=== PATIENT | male | born 1985 | race Caucasian/White ===

== ENCOUNTER 2017-09-22 00:41 | Emergency (ER) | payer MEDICAID, OTHER ==
[2017-09-22 00:42] VITALS: BMI 20.6
--- NOTE | 2017-09-22 01:18 | ED PDOC ---
Arrival/HPI - General Chief Complaint: Abdominal Pain Time Seen by Provider: 09/22/17 00:51 Historian: Patient - History of Present Illness Narrative History of Present Illness (Text): 09/22/17 01:15 A 32 year old male, with no significant past medical history, presents to the emergency department complaining of 1 day duration chills, nausea, vomiting, and body aches. The patient denies fevers, headache, dizziness, chest pain, shortness of breath, dyspnea on exertion, cough, abdominal pain, diarrhea, urinary/bowel changes, or any other complaint. PMD: Dr. Tyesha Mckeon Time/Duration: Other (1 Day) Symptom Onset: Sudden Symptom Course: Unchanged Activities at Onset: Rest, Light Context: Home Past Medical History - Provider Review Nursing Documentation Reviewed: Yes - Infectious Disease Hx of Infectious Diseases: None - Gastrointestinal Hx Gastritis: Yes - Psychiatric Hx Substance Use: No - Anesthesia Hx Anesthesia: No - Suicidal Assessment Feels Threatened In Home Enviroment: No Family/Social History - Physician Review Nursing Documentation Reviewed: Yes Family/Social History: No Known Family HX Smoking Status: Light Smoker < 10 Cigarettes Daily Hx Alcohol Use: Yes Frequency of alcohol use: Socially Hx Substance Use: No Allergies/Home Meds Allergies/Adverse Reactions: Allergies No Known Allergies Allergy (Verified 09/22/17 01:02) Home Medications: Home Meds Medication Instructions Recorded Confirmed Famotidine [Pepcid] 40 mg PO DAILY 09/22/17 09/22/17 Review of Systems - Physician Review All systems were reviewed & negative as marked: Yes - Review of Systems Constitutional: absent: Fevers Respiratory: absent: SOB, Cough Cardiovascular: absent: Chest Pain, [place] Gastrointestinal: Nausea, Vomiting. absent: Abdominal Pain, Stool Changes, Diarrhea Genitourinary Male: absent: Urinary Output Changes Musculoskeletal: Myalgias Neurological: absent: Headache, Dizziness Physical Exam Vital Signs Reviewed: Yes Vital Signs Temp Pulse Resp BP Pulse Ox 09/22/17 03:08 98.7 F 79 20 113/64 98 09/22/17 01:04 99.0 F 93 H 18 124/78 96 Temperature: Afebrile Blood Pressure: Normal Pulse: Tachycardic Respiratory Rate: Normal Appearance: Positive for: Well-Appearing, Non-Toxic, Comfortable Pain Distress: None Mental Status: Positive for: Alert and Oriented X 3 - Systems Exam Head: Present: Atraumatic, Normocephalic Pupils: Present: PERRL Extroacular Muscles: Present: EOMI Conjunctiva: Present: Normal Mouth: Present: Moist Mucous Membranes Neck: Present: Normal Range of Motion Respiratory/Chest: Present: Clear to Auscultation, Good Air Exchange. No: Respiratory Distress, Accessory Muscle Use Cardiovascular: Present: Regular Rate and Rhythm, Normal S1, S2. No: Murmurs Abdomen: Present: Normal Bowel Sounds. No: Tenderness, Distention, Peritoneal Signs Back: Present: Normal Inspection Upper Extremity: Present: Normal Inspection. No: Cyanosis, Edema Lower Extremity: Present: Normal Inspection. No: Edema Neurological: Present: GCS=15, CN II-XII Intact, Speech Normal Skin: Present: Warm, Dry, Normal Color. No: Rashes Psychiatric: Present: Alert, Oriented x 3, Normal Insight, Normal Concentration Medical Decision Making ED Course and Treatment: 09/22/17 01:17 Impression: A 32 year old male presents to the emergency department complaining of 1 day duration chills, body aches, vomiting, and diarrhea. Plan: -- Reassess and disposition Progress Notes: - Lab Interpretations Lab Results: 09/22/17 01:37 09/22/17 01:37 Lab Results 09/22/17 01:37: Sodium 138, Potassium 3.7, Chloride 101, Carbon Dioxide 28, Anion Gap 13, BUN 18, Creatinine 0.8, Est GFR ( Amer) > 60, Est GFR (Non- Af Amer) > 60, Random Glucose 102, Calcium 9.6, Total Bilirubin 0.6, AST 35, ALT 75 H, Alkaline Phosphatase 59, Total Protein 7.4, Albumin 4.3, Globulin 3.1 , Albumin/Globulin Ratio 1.4 09/22/17 01:37: Influenza Typ A,B (EIA) Negative for flu a/b 09/22/17 01:37: WBC 10.9, RBC 4.75, Hgb 14.5, Hct 42.3, MCV 89.1, MCH 30.5, MCHC 34.3, RDW 12.1, Plt Count 217, MPV 9.7, Gran % 84.9 H, Lymph % (Auto) 9.1 L , [place] % (Auto) 5.2, Eos % (Auto) 0.7 L, Baso % (Auto) 0.1, Gran # 9.26 H, Lymph # (Auto) 1.0 L, [place] # (Auto) 0.6, Eos # (Auto) 0.1, Baso # (Auto) 0.01 - Medication Orders Current Medication Orders: Discontinued Medications Sodium Chloride (Sodium Chloride 0.9%) 1,000 mls @ 80 mls/hr IV .[id number] JUSTIN Last Admin: 09/22/17 02:08 Dose: 80 mls/hr eMAR Start Stop Document 09/22/17 02:08 SS (Rec: 09/22/17 02:08 SS [email or web address] Intravenous Solution Start Date 09/22/17 Start Time 02:08 Ketorolac Tromethamine (Toradol) 30 mg IVP ONCE ONE Stop: 09/22/17 01:40 Last Admin: 09/22/17 02:09 Dose: 30 mg MAR Pain Assessment Document 09/22/17 02:09 SS (Rec: 09/22/17 02:09 SS [email or web address] Pain Reassessment Is this a pain reassessment? No Location Pain Location Body Site Abdomen IVP Administration Document 09/22/17 02:09 SS (Rec: 09/22/17 02:09 [email or web address] Charges for Administration # of IVP Administrations 1 Ondansetron HCl (Zofran Inj) 4 mg IVP STAT STA Stop: 09/22/17 01:19 Last Admin: 09/22/17 02:07 Dose: 4 mg IVP Administration Document 09/22/17 02:07 SS (Rec: 09/22/17 02:08 SS [email or web address] Charges for Administration # of IVP Administrations 1 - Scribe Statement The provider has reviewed the documentation as recorded by the Coty Beavers Provider Scribe Attestation: All medical record entries made by the Scribe were at my direction and personally dictated by me. I have reviewed the chart and agree that the record accurately reflects my personal performance of the history, physical exam, medical decision making, and the department course for this patient. I have also personally directed, reviewed, and agree with the discharge instructions and disposition. Disposition/Present on Arrival - Present on Arrival Any Indicators Present on Arrival: No History of DVT/PE: No History of Uncontrolled Diabetes: No Urinary Catheter: No History of Decub. Ulcer: No History Surgical Site Infection Following: None - Disposition Have Diagnosis and Disposition been Completed?: Yes Diagnosis: Gastroenteritis Disposition: HOME/ ROUTINE Disposition Time: 03:10 Condition: GOOD Discharge Instructions (ExitCare): Gastroenteritis (ED) Prescriptions: Oseltamivir [Tamiflu] 75 mg PO BID #14 cap Ondansetron [Zofran Odt] 8 mg PO TID PRN #10 odt PRN Reason: Nausea/Vomiting Forms: [employer] ([place]ian)
[2017-09-22] MEDS ORDERED: Sodium Chloride 0.9% 1,000 ML IV SCH (01:30)
[2017-09-22 01:54] LABS: BASO # 0.01 K/mm3 (0.0-2.0); BASO % 0.1 % (0.0-3.0); EOS # 0.1 (0.0-0.7); EOS % 0.7 % (1.5-5.0); GRAN # 9.26 (1.4-6.5); GRAN % 84.9 % (50.0-68.0); HEMOGLOBIN 14.5 g/dL (14.0-18.0); LYMPH % 9.1 % (22.0-35.0); MEAN CELL VOLUME 89.1 fl (80.0-105.0); MEAN CORPUSCULAR HEMOGLOBIN 30.5 pg (25.0-35.0); MEAN CORPUSCULAR HGB CONC 34.3 g/dl (31.0-37.0); MEAN PLATELET VOLUME 9.7 fl (7.0-11.0); MONO # 0.6 (0.1-0.6); MONO % 5.2 % (1.0-6.0); RBC 4.75 10^6/uL (3.5-6.1); RED CELL DISTRIBUTION WIDTH 12.1 % (11.5-14.5); WHITE BLOOD COUNT 10.9 10^3/ul (4.5-11.0)
[2017-09-22 01:58] LABS: ALB/GLOB RATIO 1.4 (1.1-1.8); ALBUMIN 4.3 g/dL (3.0-4.8); ALT/SGPT 75 U/L (7-56); AST/SGOT 35 U/L (17-59); BLOOD UREA NITROGEN 18 mg/dL (7-21); CALCIUM 9.6 mg/dL (8.4-10.5); GFR AFRICAN-AMERICAN > 60; GFR NON-AFRICAN AMERICAN > 60
[2017-09-22 03:09] VITALS: BP 113/64; PULSE 79; RESP 20; TEMP 98.7; O2SAT 98
== END 2017-09-22 03:10 | disposition home or self-care (01) ==
LOC: ED 00:41
DX: K52.9 Noninfective gastroenteritis and colitis, unspecified (principal)
CPT/HCPCS: 80053; 85025; 87804; 96374; 96375; 99283; J1885; J2405; J7040